=== PATIENT | female | born 1965 | race Caucasian/White ===

== ENCOUNTER 2016-03-07 11:09 | Emergency (ER) | payer OTHER ==
--- NOTE | 2016-03-07 13:15 | DIAGNOSTIC IMAGING REPORT ---
PROCEDURE: XR CERVICAL SPINE 2 OR 3 VIEW INDICATION: NECK TRAUMA/INJURY TECHNIQUE: Three views. COMPARISON: None. FINDINGS: There is moderate disc space narrowing at C5-6 with mild this space narrowing at C6-7. There is straightening of the cervical lordosis. The rest of the osseous structures and disc spaces are normal. No evidence of an acute process or fracture. IMPRESSION: 1. Mild to moderate degenerative change of the cervical spine. 2. Straightening of the cervical lordosis which may be a reflection of degenerative changes or spasm. 3. No evidence of fracture.
--- NOTE | 2016-03-07 13:36 | ED NURSING NOTES ---
Clinical Report - Nurses [facility] [address] [place] [address] 03/07/2016 11:08 Patient: MARGO MURRIETA V TRIAGE Triage time 11:48. Acuity: LEVEL 3. Chief Complaint: NECK PAIN. Alert. No acute distress. SEPSIS SCREEN: Sepsis Screen: negative. Negative (no infection suspected/documented). UDAY COMA SCORE: [place] Coma Scale: 15- eyes open spontaneously (4); best verbal response- oriented x 4 (5); best motor response- obeys commands (6). --11:56 Shruti Roque R.N. 11:47 03/07/16. BP: 135/89 taken while sitting. HR: 64. RR: 20. O2 saturation: 99%. Temp: 98.1 F. Pain level now: 09/16. --11:56 Shruti Roque R.N. Weight: 77.1 kg stated. Height/Length: 71 inches Per Patient. BMI: 23.7. --11:55 Shruti Roque R.N. Medications Vits. --11:49 Shruti Roque R.N. Medication/allergy information source: the patient. --11:56 Shruti Roque R.N. Allergies PCN. --11:49 Shruti Roque R.N. History Arrived by private vehicle. Historian: patient. Accompanied by family. No primary care physician. Onset. (sat night, 2 am). History of recent trauma- fall. Occurred at home. ( "Hurts to feel bumps in the road in a car. "). No numbness, trouble walking or extremity pain. 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 Took ibuprofen. (robaxin). PAST MEDICAL HX: Tetanus status: up-to-date. The patient is post-menopausal. SOCIAL HX: Smoker- current status unknown. Occasional alcohol use. No drug use. FALL RISK ASSESSMENT: Fall risk assessment completed. No fall risk identified. NUTRITIONAL RISK ASSESSMENT: The nutritional risk assessment revealed no deficiencies. FUNCTIONAL ASSESSMENT: Functional assessment: no impairments noted. LEARNING NEEDS ASSESSMENT: The learning needs assessment revealed no barriers. SKIN INTEGRITY ASSESSMENT: Skin integrity risk assessment completed. No skin integrity risk identified. --11:56 Shruti Roque R.N. ADDITIONAL SURGERIES: Ablation . Plantal fasitis. Tubal Ligation. --11:52 Shruti Roque R.N. Interventions ID band on patient. To room. --11:56 Shruti Roque R.N. PHYSICAL ASSESSMENT Ambulatory to room. Patient gowned. GENERAL / NEURO / PSYCH: Alert. Oriented X 4. Appears in pain and anxious. RESPIRATORY: Respirations not labored. CVS: Capillary refill less than 2 seconds. GI / : Abdomen nontender. EXTREMITIES: Limited ROM present. Sensation intact in extremities. BACK: Limited ROM of the neck. --11:56 Shruti Roque R.N. NURSING PROGRESS NOTES Patient gowned. Head of bed elevated. Two patient identifiers checked. Call light placed in reach. Side rails up x 2. Bed placed in lowest position. Brakes of bed on. Patient ready for evaluation. --11:57 Shruti Roque R.N. DISPOSITION / DISCHARGE Departure time: 13:55. Condition at departure: unchanged. No learning barriers present. Discharge instructions provided and reviewed with the patient. Patient verbalized understanding. Written instructions provided in Ukrainian. The patient was discharged home. She left the Emergency Department ambulatory and via private vehicle. Family member driving. --13:56 Shawna Gomez R.N. 13:55 03/07/16. BP: 122/80. HR: 78. RR: 16. O2 saturation: 98%. Pain level now 5/10. --13:56 Shawna Gomez R.N. Locked/Released at 03/07/2016 13:58 by Shawna Gomez R.N.
--- NOTE | 2016-03-07 13:36 | ED ORDER SUMMARY ---
..... Patient: MARGO MURRIETA V OrderSheet [facility] VisitID: [id number] [place] [address] 51y, F Registration Date/Time: 03/07/2016 ORDER SHEET Weight: 77.1 kg (stated) Allergies: PCN GENERAL ORDERS: Cervical Spine 2 or 3V Urgent (12:34 03/07/2016 Garret A.R.N.P.) ([facility] 12:43 Amberly) (13:57 Natalee R.N.) MEDICATION ORDERS: IV FLUIDS: ORDER SHEET NOTES: [Electronically signed by Shawna Gomez R.N. (13:58 03/07/2016)] [Electronically signed by Tamara RasmussenR.N.P. (14:36 03/07/2016)] [Electronically locked/signed by Shawna Gomez R.N. (13:58 03/07/2016)]
--- NOTE | 2016-03-07 13:36 | ED CLINICAL REPORT ---
Clinical Report - Physicians/Mid Levels [facility] [address] [place] [address] 03/07/2016 11:08 Patient: MARGO MURRIETA V Time Seen: 1225; initial patient contact, initial documentation, patient care assumed. Arrived- By private vehicle. Historian- patient. HISTORY OF PRESENT ILLNESS Chief Complaint: FALL. Location of injuries- neck. The injury occurred last night. Fell while walking; tripped. Occurred at home. The patient complains of moderate pain. No blow to the head, loss of consciousness or seizure. The patient complains of neck pain. Not dazed. REVIEW OF SYSTEMS No numbness, chest pain, difficulty breathing, weakness or abdominal pain. No laceration or vomiting. She has no pain on weight bearing. All systems otherwise negative, except as recorded above. PAST HISTORY See nurses notes. ADDITIONAL SURGERIES: Ablation . Plantal fasitis. Tubal Ligation. --11:52 Shruti Roque R.N. SOCIAL HISTORY Unknown if ever smoked. Occasional alcohol use. No drug use. No recent travel. Is a local resident. FAMILY HISTORY No significant family medical history. ADDITIONAL NOTES The nursing notes have been reviewed with agreement regarding the chief complaint, HPI, ROS and patient medications and allergies. PHYSICAL EXAM Vital Signs: 03/07/2016 11:47 BP: 135/89. HR: 64. RR: 20. O2 saturation: 99%. Temp: 98.1 F. Pain level now: 8/10. Have been reviewed as normal and appear to be correct. Appearance: Alert. Oriented X3. No acute distress. Head: Head non-tender. No swelling of head. Eyes: Pupils equal, round and reactive to light. EOM intact. ENT: No dental injury. Pharynx normal. Neck: Painful ROM in the neck. Decrease in ROM. Pain in the neck upon movement. No muscle spasm in the neck. Tenderness present. Mild vertebral tenderness of the lower cervical spine. CVS: Heart sounds normal. Pulses normal. Respiratory: Breath sounds normal. Chest nontender. Abdomen: No visible injury. Soft and nontender. Back: No tenderness. ROM normal. Skin: Skin intact. Skin warm and dry. Normal skin color. Normal skin turgor. Extremities: Normal inspection. Pelvis stable. Extremities atraumatic. No lower extremity edema. Neuro: Oriented X 3. No motor deficit. No sensory deficit. LABS, X-RAYS, AND EKG X-Rays: C-spine series negative. C-Spine X-rays: (IMPRESSION: 1. Mild to moderate degenerative change of the cervical spine. 2. Straightening of the cervical lordosis which may be a reflection of degenerative changes or spasm. 3. No evidence of fracture. Electronically Final signed by:Ethan Dudley MD 03/07/2016 1:13:44 PM). The X-rays were interpreted by the radiologist and contemporaneously by me. PROGRESS AND PROCEDURES Course of Care: pt politely declined offer for pain meds. Patient counseled in person regarding the patient's stable condition, test results and diagnosis. 13:20. Differential Diagnosis: Other possible considerations: fall, fx, sprains, contusions, head injury, lacs. Above considerations are based on history, physical exam and X-Ray data. Differential diagnosis was discussed with patient. Disposition: Discharged home in good and unchanged condition (13:36). Condition: good and stable. CLINICAL IMPRESSION Acute cervical strain. Fall on same level by tripping. INSTRUCTIONS Do not work tomorrow. Warnings: GENERAL WARNINGS: Return or contact your physician immediately if your condition worsens or changes unexpectedly, if not improving as expected, or if other problems arise. SPECIFICALLY, return if you develop numbness or incontinence of feces (loss of bowel control) or urine (loss of bladder control). Prescription Medications: Flexeril 10 mg: Take 1 orally every 8 hours as needed for muscle spasm. Dispense twenty (20). No refills. Substitution is permissible. Ultram 50 mg tablets: take 1-2 orally every 6 hours as needed for pain. Dispense twenty (20). No refills. Substitution is permissible. Follow-up: Follow up with your doctor in about one week as needed. Call for an appointment. Summary of care provided to patient. Understanding of the discharge instructions verbalized by patient. (Electronically signed by Tamara Rasmussen A.R.N.P. 03/07/2016 14:36)
--- NOTE | 2016-03-07 13:36 | ED ORDER SUMMARY ---
..... Patient: MARGO MURRIETA V OrderSheet [facility] VisitID: [id number] [place] [address] 51y, F Registration Date/Time: 03/07/2016 ORDER SHEET Weight: 77.1 kg (stated) Allergies: PCN GENERAL ORDERS: Cervical Spine 2 or 3V Urgent (12:34 03/07/2016 Garret A.R.N.P.) ([facility] 12:43 Amberly) (13:57 Natalee R.N.) MEDICATION ORDERS: IV FLUIDS: ORDER SHEET NOTES: [Electronically signed by Shawna Gomez R.N. (13:58 03/07/2016)] [Electronically signed by Tamara RasmussenR.N.P. (14:36 03/07/2016)] [Electronically locked/signed by Shawna Gomez R.N. (13:58 03/07/2016)]
--- NOTE | 2016-03-07 13:36 | ED NURSING NOTES ---
Clinical Report - Nurses [facility] [address] [place] [address] 03/07/2016 11:08 Patient: MARGO MURRIETA V TRIAGE Triage time 11:48. Acuity: LEVEL 3. Chief Complaint: NECK PAIN. Alert. No acute distress. SEPSIS SCREEN: Sepsis Screen: negative. Negative (no infection suspected/documented). UDAY COMA SCORE: [place] Coma Scale: 15- eyes open spontaneously (4); best verbal response- oriented x 4 (5); best motor response- obeys commands (6). --11:56 Shruti Roque R.N. 11:47 03/07/16. BP: 135/89 taken while sitting. HR: 64. RR: 20. O2 saturation: 99%. Temp: 98.1 F. Pain level now: 09/16. --11:56 Shruti Roque R.N. Weight: 77.1 kg stated. Height/Length: 71 inches Per Patient. BMI: 23.7. --11:55 Shruti Roque R.N. Medications Vits. --11:49 Shruti Roque R.N. Medication/allergy information source: the patient. --11:56 Shruti Roque R.N. Allergies PCN. --11:49 Shruti Roque R.N. History Arrived by private vehicle. Historian: patient. Accompanied by family. No primary care physician. Onset. (sat night, 2 am). History of recent trauma- fall. Occurred at home. ( "Hurts to feel bumps in the road in a car. "). No numbness, trouble walking or extremity pain. 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 Took ibuprofen. (robaxin). PAST MEDICAL HX: Tetanus status: up-to-date. The patient is post-menopausal. SOCIAL HX: Smoker- current status unknown. Occasional alcohol use. No drug use. FALL RISK ASSESSMENT: Fall risk assessment completed. No fall risk identified. NUTRITIONAL RISK ASSESSMENT: The nutritional risk assessment revealed no deficiencies. FUNCTIONAL ASSESSMENT: Functional assessment: no impairments noted. LEARNING NEEDS ASSESSMENT: The learning needs assessment revealed no barriers. SKIN INTEGRITY ASSESSMENT: Skin integrity risk assessment completed. No skin integrity risk identified. --11:56 Shruti Roque R.N. ADDITIONAL SURGERIES: Ablation . Plantal fasitis. Tubal Ligation. --11:52 Shruti Roque R.N. Interventions ID band on patient. To room. --11:56 Shruti Roque R.N. PHYSICAL ASSESSMENT Ambulatory to room. Patient gowned. GENERAL / NEURO / PSYCH: Alert. Oriented X 4. Appears in pain and anxious. RESPIRATORY: Respirations not labored. CVS: Capillary refill less than 2 seconds. GI / : Abdomen nontender. EXTREMITIES: Limited ROM present. Sensation intact in extremities. BACK: Limited ROM of the neck. --11:56 Shruti Roque R.N. NURSING PROGRESS NOTES Patient gowned. Head of bed elevated. Two patient identifiers checked. Call light placed in reach. Side rails up x 2. Bed placed in lowest position. Brakes of bed on. Patient ready for evaluation. --11:57 Shruti Roque R.N. DISPOSITION / DISCHARGE Departure time: 13:55. Condition at departure: unchanged. No learning barriers present. Discharge instructions provided and reviewed with the patient. Patient verbalized understanding. Written instructions provided in Czech. The patient was discharged home. She left the Emergency Department ambulatory and via private vehicle. Family member driving. --13:56 Shawna Gomez R.N. 13:55 03/07/16. BP: 122/80. HR: 78. RR: 16. O2 saturation: 98%. Pain level now 5/10. --13:56 Shawna Gomez R.N. Locked/Released at 03/07/2016 13:58 by Shawna Gomez R.N.
--- NOTE | 2016-03-07 14:36 | ED MED RECONCILIATION SUMMARY ---
Patient: MARGO MURRIETA V Medication Reconciliation Report [facility] VisitID: [id number] [address] [place] [address] 51y, F Registration Date/Time: 03/07/2016 Weight: 77.1 kg Height/Length: 71 in. BMI: 23.7 ALLERGIES: PCN The patient's Home Medications are listed below: THE FOLLOWING MEDICATIONS NEED TO BE RECONCILED: Vits The source(s) of the original Home Medication information: patient The following Medications were given to the patient in the Emergency Department: None. The following Medications were prescribed to the patient: Flexeril 10 mg: Take 1 orally every 8 hours as needed for muscle spasm. Dispense twenty (20). No refills. Substitution is permissible. -- Tamara Rasmussen, A.R.N.P. Ultram 50 mg tablets: take 1-2 orally every 6 hours as needed for pain. Dispense twenty (20). No refills. Substitution is permissible. -- Tamara Rasmussen A.R.N.P.
--- NOTE | 2016-03-07 14:36 | ED MAR SUMMARY ---
..... Medication Administration Record [facility] [address] [place], [place] [id number] Patient: MARGO MURRIETA V Visit ID: [id number] 51y, F Weight: 77.1 kg Height/Length: 71 in BMI: 23.7 ALLERGIES: PCN
--- NOTE | 2016-03-07 14:36 | ED DISCHARGE INSTRUCTIONS ---
Patient: MARGO MURRIETA V General Instructions [facility] VisitID: [id number] [place] [address] 51y, F Registration Date/Time: 03/07/2016 Acute cervical strain. Fall on same level by tripping. INSTRUCTIONS Do not work tomorrow. Warnings: GENERAL WARNINGS: Return or contact your physician immediately if your condition worsens or changes unexpectedly, if not improving as expected, or if other problems arise. SPECIFICALLY, return if you develop numbness or incontinence of feces (loss of bowel control) or urine (loss of bladder control). Prescription Medications: Flexeril 10 mg: Take 1 orally every 8 hours as needed for muscle spasm. Dispense twenty (20). No refills. Substitution is permissible. Ultram 50 mg tablets: take 1-2 orally every 6 hours as needed for pain. Dispense twenty (20). No refills. Substitution is permissible. Follow-up: Follow up with your doctor in about one week as needed. Call for an appointment. Summary of care provided to patient. Understanding of the discharge instructions verbalized by patient. ADDITIONAL INFORMATION Mechanical Fall You have had a fall today. It appears that the cause is mechanical. That means that you slipped, tripped or lost your balance. If your fall had been due to fainting or a seizure, further tests would be required. Home Care: Rest today and resume your normal activities when you are feeling back to normal. If you were injured during the fall, follow the advice from your doctor regarding care of your injury. You may use acetaminophen (Tylenol) or ibuprofen (Motrin, Advil) to control pain, unless another pain medicine was prescribed. [NOTE: If you have chronic liver or kidney disease or ever had a stomach ulcer or GI bleeding, talk with your doctor before using these medicines.] Fall Prevention: Was there anything that caused your fall that can be fixed, removed, or replaced? Make your home safe by keeping walkways clear of objects you may trip over. Use non-slip pads under rugs. Do not walk in poorly lit areas. Do not stand on chairs or wobbly ladders. Use caution when reaching overhead or looking upward. This position can cause a loss of balance. Be sure your shoes fit properly, have non-slip bottoms and are in good condition. Be cautious when going up and down curbs, and walking on uneven sidewalks. If your balance is poor, consider using a cane or walker. Stay as active as you can. Balance, flexibility, strength, and endurance all come from exercise. They all play a role in preventing falls. Follow Up with your doctor or as advised by our staff. Get Prompt Medical Attention if any of the following occur: Repeated mechanical falls, or unexplained falls Dizziness, fainting or seizure Severe headache Chest pain or shortness of breath Palpitations (very rapid or very slow or irregular heartbeat) Blood in vomit, stools (black or red color) Weakness of an arm or leg or one side of the face Difficulty with speech or vision Neck Sprain Or Strain A sudden force that causes turning or bending of the neck (such as in a car accident) can stretch or tear muscles (strain) and ligaments (sprain) and cause neck pain. Sometimes neck pain occurs after a simple awkward movement. In either case, muscle spasm is commonly present and contributes to the pain. Unless you had a forceful physical injury (for example, a car accident or fall), X-rays are usually not ordered for the initial evaluation of neck pain. If pain continues and dose not respond to medical treatment, X-rays and other tests may be performed at a later time. Home care The following guidelines will help you care for your injury at home: You may feel more soreness and spasm the first few days after the injury. Reduce your activity level until symptoms begin to improve. When lying down, use a comfortable pillow that supports the head and keeps the spine in a neutral position. The position of the head should not be tilted forward or backward. Use ice packs (ice in a plastic bag, wrapped in a towel) to treat acute pain. Apply for 20 minutes every 24 hours during the first two days. Then, begin local heat (hot shower, hot bath or heating pad) andmassageto reduce muscle spasm. Some patients feel best alternating hot and cold treatments, or just staying with one method only. Do what feels the best to you and gives the most relief. You may use acetaminophen or ibuprofen to control pain, unless another pain medicine was prescribed.If you have chronic liver or kidney disease or ever had a stomach ulcer or GI bleeding, talk with your doctor before using these medicines. Follow-up care Follow up with your physician or this facility if your symptoms do not show signs of improvement. Physical therapy may be needed. If you had X-rays today, they didnt show any broken bones, breaks, or fractures. Sometimes fractures dont show up on the first X-ray. Bruises and sprains can sometimes hurt as much as a fracture. These injuries can take time to heal completely. If your symptoms dont improve or they get worse, talk with your doctor. You may need a repeat X-ray. When to seek medical care Get prompt medical attention if any of the following occur: Pain becomes worse or spreads into your arms Weakness or numbness in one or both arms Neck Pain [No Trauma] There are several possible causes of neck pain without injury: You can get a minor ligament sprain or muscle strain from a sudden minor neck movement. Sleeping with your neck in an awkward position can also cause this. Some persons respond to emotional stress by tensing the muscles of their neck, shoulders and upper back. Chronic spasm in these muscles can cause neck pain and sometimes headaches. Gradualwear and tearof the joints in the spine can cause degenerative arthritis.This can be a source of occasional or chronic neck pain. With aging or repeated small injuries to the neck, the spinal disks (the cushions between each spinal bone) may bulge and put pressure on a nearby spinal nerve. This causes tingling, pain or numbness spreading from the neck to the shoulder, arm or hand on one side. Acute neck pain usually gets better in one to two weeks. Neck pain related to disk disease, arthritis in the spinal joints or spinal stenosis (narrowing of the spinal canal) can become chronic and last for months or years. Unless you had a forceful physical injury (for example, a car accident or fall), X-rays are usually not ordered for the initial evaluation of neck pain. If pain continues and does not respond to medical treatment, x-rays and other tests may be performed at a later time. Home Care: Rest and relax the muscles. Use a comfortable pillow that supports the head and keeps the spine in a neutral position. The position of the head should not be tilted forward or backward. A rolled up towel may help for a custom fit. Some persons find relief with heat (hot shower, hot bath or heating pad) and massage, while others prefer cold packs (crushed or cubed ice in a plastic bag, wrapped in a towel) . Try both and use the method that feels best for 20 minutes several times a day. You may use acetaminophen (Tylenol) or ibuprofen (Motrin, Advil) to control pain, unless another medicine was prescribed. [ NOTE : If you have chronic liver or kidney disease or ever had a stomach ulcer or GI bleeding, talk with your doctor before using these medicines.] Follow Up with your physician or this facility if your symptoms do not show signs of improvement after one week. Physical therapy or further tests may be needed. [NOTE: A radiologist will review any X-rays or CT scans that were taken. We will notify you of any new findings that may affect your care.] Get Prompt Medical Attention if any of the following occur: Pain becomes worse or spreads into one or both arms Weakness or numbness in one or both arms Increasing headache Neck swelling, difficulty or painful swallowing Fever of 100.4F (38C) or higher, or as directed by your healthcare provider Cyclobenzaprine Hydrochloride Oral tablet What is this medicine? CYCLOBENZAPRINE (sye maddie VIN shelby preen) is a muscle relaxer. It is used to treat muscle pain, spasms, and stiffness. How should I use this medicine? Take this medicine by mouth with a glass of water. Follow the directions on the prescription label. If this medicine upsets your stomach, take it with food or milk. Take your medicine at regular intervals. Do not take it more often than directed. Talk to your manager of case regarding the use of this medicine in children. Special care may be needed. What side effects may I notice from receiving this medicine? Side effects that you should report to your doctor or health residential care facility manager as soon as possible: allergic reactions like skin rash, itching or hives, swelling of the face, lips, or tongue chest pain fast heartbeat hallucinations seizures vomiting Side effects that usually do not require medical attention (report to your doctor or health residential care facility manager if they continue or are bothersome): headache What may interact with this medicine? Do not take this medicine with any of the following medications: cisapride droperidol flecainide grepafloxacin halofantrine levomethadyl MAOIs like Carbex, Eldepryl, Marplan, Nardil, and Parnate nilotinib pimozide probucol sertindole This medicine may also interact with the following medications: abarelix alcohol contrast dyes dolasetron guanethidine medicines for cancer medicines for depression, anxiety, or psychotic disturbances medicines to treat an irregular heartbeat medicines used for sleep or numbness during surgery or procedure methadone octreotide ondansetron palonosetron phenothiazines like chlorpromazine, mesoridazine, prochlorperazine, thioridazine some medicines for infection like alfuzosin, chloroquine, clarithromycin, levofloxacin, mefloquine, pentamidine, troleandomycin tramadol vardenafil What if I miss a dose? If you miss a dose, take it as soon as you can. If it is almost time for your next dose, take only that dose. Do not take double or extra doses. Where should I keep my medicine? Keep out of the reach of children. Store at room temperature between 15 and 30 degrees C (59 and 86 degrees F). Keep container tightly closed. Throw away any unused medicine after the expiration date. What should I tell my health care provider before I take this medicine? They need to know if you have any of these conditions: heart disease, irregular heartbeat, or previous heart attack liver disease thyroid problem an unusual or allergic reaction to cyclobenzaprine, tricyclic antidepressants, lactose, other medicines, foods, dyes, or preservatives or trying to get breast-feeding What should I watch for while using this medicine? Check with your doctor or health residential care facility manager if your condition does not improve within 1 to 3 weeks. You may get drowsy or dizzy when you first start taking the medicine or change doses. Do not drive, use machinery, or do anything that may be dangerous until you know how the medicine affects you. Stand or sit up slowly. Your mouth may get dry. Drinking water, chewing sugarless gum, or sucking on hard candy may help. Tramadol Hydrochloride Oral tablet What is this medicine? TRAMADOL (TRA ma dole) is a pain reliever. It is used to treat moderate to severe pain in adults. How should I use this medicine? Take this medicine by mouth with a full glass of water. Follow the directions on the prescription label. If the medicine upsets your stomach, take it with food or milk. Do not take more medicine than you are told to take. Talk to your manager of case regarding the use of this medicine in children. Special care may be needed. What side effects may I notice from receiving this medicine? Side effects that you should report to your doctor or health residential care facility manager as soon as possible: allergic reactions like skin rash, itching or hives, swelling of the face, lips, or tongue breathing difficulties, wheezing confusion itching light headedness or fainting spells redness, blistering, peeling or loosening of the skin, including inside the mouth seizures Side effects that usually do not require medical attention (report to your doctor or health residential care facility manager if they continue or are bothersome): constipation dizziness drowsiness headache nausea, vomiting What may interact with this medicine? Do not take this medicine with any of the following medications: MAOIs like Carbex, Eldepryl, Marplan, Nardil, and Parnate This medicine may also interact with the following medications: alcohol or medicines that contain alcohol antihistamines benzodiazepines bupropion carbamazepine or oxcarbazepine clozapine cyclobenzaprine digoxin furazolidone linezolid medicines for depression, anxiety, or psychotic disturbances medicines for migraine headache like almotriptan, eletriptan, frovatriptan, naratriptan, rizatriptan, sumatriptan, zolmitriptan medicines for pain like pentazocine, buprenorphine, butorphanol, meperidine, nalbuphine, and propoxyphene medicines for sleep muscle relaxants naltrexone phenobarbital phenothiazines like perphenazine, thioridazine, chlorpromazine, mesoridazine, fluphenazine, prochlorperazine, promazine, and trifluoperazine procarbazine warfarin What if I miss a dose? If you miss a dose, take it as soon as you can. If it is almost time for your next dose, take only that dose. Do not take double or extra doses. Where should I keep my medicine? Keep out of the reach of children. Store at room temperature between 15 and 30 degrees C (59 and 86 degrees F). Keep container tightly closed. Throw away any unused medicine after the expiration date. What should I tell my health care provider before I take this medicine? They need to know if you have any of these conditions: brain tumor depression drug abuse or addiction head injury if you frequently drink alcohol containing drinks kidney disease or trouble passing urine liver disease lung disease, asthma, or breathing problems seizures or epilepsy suicidal thoughts, plans, or attempt; a previous suicide attempt by you or a family member an unusual or allergic reaction to tramadol, codeine, other medicines, foods, dyes, or preservatives or trying to get breast-feeding What should I watch for while using this medicine? Tell your doctor or health residential care facility manager if your pain does not go away, if it gets worse, or if you have new or a different type of pain. You may develop tolerance to the medicine. Tolerance means that you will need a higher dose of the medicine for pain relief. Tolerance is normal and is expected if you take this medicine for a long time. Do not suddenly stop taking your medicine because you may develop a severe reaction. Your body becomes used to the medicine. This does NOT mean you are addicted. Addiction is a behavior related to getting and using a drug for a non-medical reason. If you have pain, you have a medical reason to take pain medicine. Your doctor will tell you how much medicine to take. If your doctor wants you to stop the medicine, the dose will be slowly lowered over time to avoid any side effects. You may get drowsy or dizzy. Do not drive, use machinery, or do anything that needs mental alertness until you know how this medicine affects you. Do not stand or sit up quickly, especially if you are an older patient. This reduces the risk of dizzy or fainting spells. Alcohol can increase or decrease the effects of this medicine. Avoid alcoholic drinks. You may have constipation. Try to have a bowel movement at least every 2 to 3 days. If you do not have a bowel movement for 3 days, call your doctor or health residential care facility manager. Your mouth may get dry. Chewing sugarless gum or sucking hard candy, and drinking plenty of water may help. Contact your doctor if the problem does not go away or is severe. You have been given the following additional information: Fall, Mechanical Neck Sprain/Strain Neck Pain, No Trauma Cyclobenzaprine Hydrochloride Oral tablet Tramadol Hydrochloride Oral tablet Do not work tomorrow. (Electronically signed by Tamara Rasmussen A.R.N.P. 03/07/2016 14:36)
--- NOTE | 2016-03-07 14:36 | ED MAR SUMMARY ---
..... Medication Administration Record [facility] [address] [place], [place] [id number] Patient: MARGO MURRIETA V Visit ID: [id number] 51y, F Weight: 77.1 kg Height/Length: 71 in BMI: 23.7 ALLERGIES: PCN
--- NOTE | 2016-03-07 14:36 | ED MED RECONCILIATION SUMMARY ---
Patient: MARGO MURRIETA V Medication Reconciliation Report [facility] VisitID: [id number] [address] [place] [address] 51y, F Registration Date/Time: 03/07/2016 Weight: 77.1 kg Height/Length: 71 in. BMI: 23.7 ALLERGIES: PCN The patient's Home Medications are listed below: THE FOLLOWING MEDICATIONS NEED TO BE RECONCILED: Vits The source(s) of the original Home Medication information: patient The following Medications were given to the patient in the Emergency Department: None. The following Medications were prescribed to the patient: Flexeril 10 mg: Take 1 orally every 8 hours as needed for muscle spasm. Dispense twenty (20). No refills. Substitution is permissible. -- Tamara Rasmussen, A.R.N.P. Ultram 50 mg tablets: take 1-2 orally every 6 hours as needed for pain. Dispense twenty (20). No refills. Substitution is permissible. -- Tamara Rasmussen A.R.N.P.
== END 2016-03-07 13:53 | disposition home or self-care (01) ==
LOC: ED SRH 11:09
DX: S16.1XXA Strain of muscle, fascia and tendon at neck level, initial encounter (principal); W01.0XXA Fall on same level from slipping, tripping and stumbling without subsequent striking against object, initial encounter; Y93.9 Activity, unspecified; Y92.009 Unspecified place in unspecified non-institutional (private) residence as the place of occurrence of the external cause; Y99.9 Unspecified external cause status